=== PATIENT | male | born 1995 | race Caucasian/White ===

== ENCOUNTER 2016-09-05 13:47 | Emergency (ER) | payer SELFPAY ==
[2016-09-05] MEDS ORDERED: IBUPROFEN 600 MG TABLET ONE (14:58)
--- NOTE | 2016-09-05 14:58 | RAD ---
History: Chest pain. Comparison: None. Technique: 2 views Findings: The soft tissue and bony structures are unremarkable. The heart size is appropriate. No infiltrate, effusion or pneumothorax is observed. The hilar and mediastinal structures are normal. Impression: 1. A negative 2 view chest
== END 2016-09-05 15:41 | disposition home or self-care (01) ==
LOC: ED 13:47
DX: M94.0 Chondrocostal junction syndrome [Tietze] (principal); F32.9 Major depressive disorder, single episode, unspecified; F17.210 Nicotine dependence, cigarettes, uncomplicated
CPT/HCPCS: 71020; 99283 ×2; 93005; A9270